=== PATIENT | male | born 1960 | race Caucasian/White ===

== ENCOUNTER 2020-08-09 11:49 | Emergency (ER) | payer BC ==
[~2020-08-09] VITALS: Ht 175.3 cm; Wt 61.7 kg
[2020-08-09 12:02] VITALS: BP 121/81; Ht 175.3 cm; Wt 61.7 kg
== END 2020-08-09 16:21 | disposition home or self-care (01) ==
LOC: ED 11:49
DX: E86.0 Dehydration (principal); T46.6X5A Adverse effect of antihyperlipidemic and antiarteriosclerotic drugs, initial encounter; K90.49 Malabsorption due to intolerance, not elsewhere classified; I10 Essential (primary) hypertension; E78.00 Pure hypercholesterolemia, unspecified; Z88.0 Allergy status to penicillin; Y92.89 Other specified places as the place of occurrence of the external cause